=== PATIENT | female | born 1955 | race Two or more races ===

== ENCOUNTER 2016-12-03 07:51 | Day surgery (SDC) | payer BC, MEDICAID ==
[~2016-12-03 07:51] MED LIST: AMLO10TA4 PO; ASPI325T70 PO; ESTR0.5T PO; HYDR-971 PO; HYDR12.53 PO; HYDR25TA9 PO; IV RINGERS,LACTATED 1000ML 1,000 ML IV SCH; LEVO100T PO; LEVO150T5 PO; LIDOCAINE 1% 1 ML SYRINGE. ID PRN; LINA145C PO; NITR0.4T22 SL; ONDANSETRON PF 4 MG/2 ML VIAL. IV PRN; PROCHLORPERAZINE 10 MG/2 ML VIAL. IV PRN; VITA400C11 PO; fentaNYL PF VIAL 100 MCG/2 ML VIAL IV PRN
[2016-12-03] MEDS ORDERED: BUPIVAC MPF-EPI 0.5%-1:200000 30 ML VIAL. ONE (08:03)
[2016-12-03] MEDS ORDERED: ONDANSETRON PF 4 MG/2 ML VIAL. ONE (08:43)
[2016-12-03] MEDS ORDERED: DESFLURANE 31 TO 60 MINUTES IH ONE (08:43)
[2016-12-03] MEDS ORDERED: PROPOFOL 20 ML IV ONE (08:43)
[2016-12-03] MEDS ORDERED: fentaNYL PF VIAL 100 MCG/2 ML VIAL ONE (08:43)
[2016-12-03] MEDS ORDERED: DEXAMETHASONE SOD PHOS 20 MG/5 ML VIAL. ONE (08:43)
[2016-12-03] MEDS ORDERED: LIDOCAINE 2% PF Vial for OR 5 ML VIAL. ONE (08:43)
[2016-12-03] MEDS ORDERED: CLINDAMYCIN 600MG PREMIX 50 ML IV ONE (08:54)
[2016-12-03 08:55] LABS: BASO # 0.1 x10^3/uL (0.0-0.2); BASO % 1 % (0-3); EOS % 4 % (0-3); HEMATOCRIT 36.7 % (36.0-47.0); HEMOGLOBIN 12.8 g/dL (12.0-15.5); LYMPH # 2.7 x10^3/uL (1.0-4.8); LYMPH % 35 % (24-48); MEAN CORPUSCULAR HEMOGLOBIN 32 pg (25-35); MEAN CORPUSCULAR HGB CONC 35 g/dL (31-37); MEAN CORPUSCULAR VOLUME 91 fL (79-100); MONO % 9 % (0-9); NEUT % 51 % (31-73); PLATELET COUNT 383 x10^3/uL (140-400); RED BLOOD COUNT 4.04 x10^6/uL (3.50-5.40); RED CELL DISTRIBUTION WIDTH 14.2 % (11.5-14.5); WHITE BLOOD COUNT 7.8 x10^3/uL (4.0-11.0)
[2016-12-03 09:03] LABS: CALCIUM 8.8 mg/dL (8.5-10.1); GFR 56.4; POTASSIUM 3.8 mmol/L (3.5-5.1)
[2016-12-03] MEDS ORDERED: SCOPOLAMINE 1.5MG PATCH. TD ONE (09:05)
[2016-12-03 09:06] LABS: PROTHROMBIN TIME PATIENT 12.9 SEC (11.7-14.0)
[2016-12-03 09:09] LABS: ALBUMIN 3.7 g/dL (3.4-5.0); ALBUMIN/GLOBULIN RATIO 1.1 (1.0-1.7); TOTAL BILIRUBIN 0.4 mg/dL (0.2-1.0); TOTAL PROTEIN 7.2 g/dL (6.4-8.2)
--- NOTE | 2016-12-03 09:12 | PDOC ---
SURGICAL PROGRESS NOTE Subjective No change in dictated H&P Vital Signs Vital Signs Date Time Temp Pulse Resp B/P (MAP) Pulse Ox O2 Delivery O2 Flow Rate FiO2 12/03/16 08:49 98.1 82 20 157/82 99 Room Air 98.1 Labs Laboratory Tests Test 12/03/16 08:45 White Blood Count 7.8 x10^3/uL (4.0-11.0) Red Blood Count 4.04 x10^6/uL (3.50-5.40) Hemoglobin 12.8 g/dL (12.0-15.5) Hematocrit 36.7 % (36.0-47.0) Mean Corpuscular Volume 91 fL (79-100) Mean Corpuscular Hemoglobin 32 pg (25-35) Mean Corpuscular Hemoglobin Concent 35 g/dL (31-37) Red Cell Distribution Width 14.2 % (11.5-14.5) Platelet Count 383 x10^3/uL (140-400) Neutrophils (%) (Auto) 51 % (31-73) Lymphocytes (%) (Auto) 35 % (24-48) Monocytes (%) (Auto) 9 % (0-9) Eosinophils (%) (Auto) 4 % (0-3) Basophils (%) (Auto) 1 % (0-3) Neutrophils # (Auto) 4.0 x10^3uL (1.8-7.7) Lymphocytes # (Auto) 2.7 x10^3/uL (1.0-4.8) Monocytes # (Auto) 0.7 x10^3/uL (0.0-1.1) Eosinophils # (Auto) 0.3 x10^3/uL (0.0-0.7) Basophils # (Auto) 0.1 x10^3/uL (0.0-0.2) Prothrombin Time 12.9 SEC (11.7-14.0) Prothromb Time International Ratio 1.0 (0.8-1.1) Laboratory Tests Test 12/03/16 08:45 White Blood Count 7.8 x10^3/uL (4.0-11.0) Red Blood Count 4.04 x10^6/uL (3.50-5.40) Hemoglobin 12.8 g/dL (12.0-15.5) Hematocrit 36.7 % (36.0-47.0) Mean Corpuscular Volume 91 fL (79-100) Mean Corpuscular Hemoglobin 32 pg (25-35) Mean Corpuscular Hemoglobin Concent 35 g/dL (31-37) Red Cell Distribution Width 14.2 % (11.5-14.5) Platelet Count 383 x10^3/uL (140-400) Neutrophils (%) (Auto) 51 % (31-73) Lymphocytes (%) (Auto) 35 % (24-48) Monocytes (%) (Auto) 9 % (0-9) Eosinophils (%) (Auto) 4 % (0-3) Basophils (%) (Auto) 1 % (0-3) Neutrophils # (Auto) 4.0 x10^3uL (1.8-7.7) Lymphocytes # (Auto) 2.7 x10^3/uL (1.0-4.8) Monocytes # (Auto) 0.7 x10^3/uL (0.0-1.1) Eosinophils # (Auto) 0.3 x10^3/uL (0.0-0.7) Basophils # (Auto) 0.1 x10^3/uL (0.0-0.2) Prothrombin Time 12.9 SEC (11.7-14.0) Prothromb Time International Ratio 1.0 (0.8-1.1) SANDRA LANDRUM MD Dec 03, 2016 09:12
--- NOTE | 2016-12-03 09:14 | PDOC ---
SURGICAL PROGRESS NOTE Subjective Op Note: Surgeon...............................Landrum Pre op dag...........................CA right breast Post op diag.........................same and no longer in need of port-a-cath Anesthesia..........................General Procedure............................Removal Port-a-cath Drains.................................none Fluids..................................see anesthesia sheet Blood loss...........................5cc Condition.............................satisfactory Vital Signs Vital Signs Date Time Temp Pulse Resp B/P (MAP) Pulse Ox O2 Delivery O2 Flow Rate FiO2 12/03/16 08:49 98.1 82 20 157/82 99 Room Air 98.1 Labs Laboratory Tests Test 12/03/16 08:45 White Blood Count 7.8 x10^3/uL (4.0-11.0) Red Blood Count 4.04 x10^6/uL (3.50-5.40) Hemoglobin 12.8 g/dL (12.0-15.5) Hematocrit 36.7 % (36.0-47.0) Mean Corpuscular Volume 91 fL (79-100) Mean Corpuscular Hemoglobin 32 pg (25-35) Mean Corpuscular Hemoglobin Concent 35 g/dL (31-37) Red Cell Distribution Width 14.2 % (11.5-14.5) Platelet Count 383 x10^3/uL (140-400) Neutrophils (%) (Auto) 51 % (31-73) Lymphocytes (%) (Auto) 35 % (24-48) Monocytes (%) (Auto) 9 % (0-9) Eosinophils (%) (Auto) 4 % (0-3) Basophils (%) (Auto) 1 % (0-3) Neutrophils # (Auto) 4.0 x10^3uL (1.8-7.7) Lymphocytes # (Auto) 2.7 x10^3/uL (1.0-4.8) Monocytes # (Auto) 0.7 x10^3/uL (0.0-1.1) Eosinophils # (Auto) 0.3 x10^3/uL (0.0-0.7) Basophils # (Auto) 0.1 x10^3/uL (0.0-0.2) Prothrombin Time 12.9 SEC (11.7-14.0) Prothromb Time International Ratio 1.0 (0.8-1.1) Laboratory Tests Test 12/03/16 08:45 White Blood Count 7.8 x10^3/uL (4.0-11.0) Red Blood Count 4.04 x10^6/uL (3.50-5.40) Hemoglobin 12.8 g/dL (12.0-15.5) Hematocrit 36.7 % (36.0-47.0) Mean Corpuscular Volume 91 fL (79-100) Mean Corpuscular Hemoglobin 32 pg (25-35) Mean Corpuscular Hemoglobin Concent 35 g/dL (31-37) Red Cell Distribution Width 14.2 % (11.5-14.5) Platelet Count 383 x10^3/uL (140-400) Neutrophils (%) (Auto) 51 % (31-73) Lymphocytes (%) (Auto) 35 % (24-48) Monocytes (%) (Auto) 9 % (0-9) Eosinophils (%) (Auto) 4 % (0-3) Basophils (%) (Auto) 1 % (0-3) Neutrophils # (Auto) 4.0 x10^3uL (1.8-7.7) Lymphocytes # (Auto) 2.7 x10^3/uL (1.0-4.8) Monocytes # (Auto) 0.7 x10^3/uL (0.0-1.1) Eosinophils # (Auto) 0.3 x10^3/uL (0.0-0.7) Basophils # (Auto) 0.1 x10^3/uL (0.0-0.2) Prothrombin Time 12.9 SEC (11.7-14.0) Prothromb Time International Ratio 1.0 (0.8-1.1) SANDRA LANDRUM MD Dec 03, 2016 09:14
[2016-12-03] MEDS ORDERED: oxyCODONE/APAP 5/325 1 TAB TABLET ONE (10:19)
[2016-12-03] MEDS ORDERED: OXYC-323 PO (10:21)
[2016-12-03] MEDS ORDERED: oxyCODONE/APAP 5/325 1 TAB TABLET PO ONE (10:30)
[2016-12-03 14:50] VITALS: BP 136/76
--- NOTE | 2016-12-04 10:56 | OP ---
DATE OF SURGERY: 12/03/2016 SURGEON: Abhishek Landrum MD. PREOPERATIVE DIAGNOSIS: Carcinoma of the right breast with no need for chemotherapy any longer. POSTOPERATIVE DIAGNOSIS: Carcinoma of the right breast with no need for chemotherapy any longer. ANESTHESIA: General. PROCEDURE: Removal of Port-A-Cath. TECHNIQUE: Under general anesthesia, per the patient's request, we properly prepped and draped her in a routine fashion. A small incision was made over the old incision where the Port-A-Cath was and carried down through the skin with a 15 blade. We then used retractors to hold the skin edges back and then dissected slowly down to the junction of the catheter and the port. We used cautery to open this area up, so as not to cut the tube, and we went around it, and slowly we were able to the integument around the port and then deliver the port into the wound. the integument was cut away using cautery and the catheter was removed. We placed the patient in somewhat of a reverse Trendelenburg position, so as to keep any blood from going from there, so that there would not be much bleeding. The catheter was totally removed. Pressure was applied. Procedure was now terminated. The deeper structures were then approximated with interrupted 4-0 Vicryl and the skin was closed using a subcuticular 5-0 Vicryl. A Tegaderm dressing was applied and the procedure was terminated. BLOOD LOSS: Less than 3-4 mL. DRAINS: No drains were used. FLUIDS GIVEN: Can be obtained from the anesthesia sheet. CONDITION OF THE PATIENT: Satisfactory as she is returned to the recovery room. ABHISHEK LANDRUM MD DR: NAOMIE/ana maría JOB#: [id number] / [id number]
== END 2016-12-03 15:24 | disposition home or self-care (01) ==
LOC: SURG 07:51
PROVIDERS: ATTEND Specialist
DX: Z45.2 Encounter for adjustment and management of vascular access device (principal); C50.911 Malignant neoplasm of unspecified site of right female breast; Z79.01 Long term (current) use of anticoagulants; Z88.6 Allergy status to analgesic agent; Z91.040 Latex allergy status
CPT/HCPCS: 36415; 36590; 80053; 85025; 85610; J1100; J2405; J2704; J3010; J3490; J2001